=== PATIENT | female | born 1980 | race Caucasian/White ===

== ENCOUNTER 2018-03-27 17:19 | Emergency (ER) | payer BC ==
[~2018-03-27] VITALS: Ht 172.7 cm; Wt 59.0 kg
[2018-03-27 17:53] LABS: *URINE HCG, QUAL NEGATIVE (NEGATIVE)
--- NOTE | 2018-03-27 17:56 | NUR ---
PT IS IN ROOM #1B. DR GUERRA EVALUATED THE [place].
[2018-03-27] MEDS ORDERED: HYDROCODONE/APAP 5-325MG TABLET PO ONE (18:15)
[2018-03-27] MEDS ORDERED: HYDROCODONE/APAP 5-325MG TABLET ONE (18:24)
--- NOTE | 2018-03-27 18:29 | NUR ---
PT WAS D/C TO HOME. D/C INSTRUCTIONS GIVEN TO THE PT.
[2018-03-27 18:31] VITALS: BP 132/65
== END 2018-03-27 18:45 | disposition home or self-care (01) ==
LOC: ER 17:24
DX: S06.0X0A Concussion without loss of consciousness, initial encounter (principal); R55 Syncope and collapse; R10.9 Unspecified abdominal pain; R19.7 Diarrhea, unspecified; W22.8XXA Striking against or struck by other objects, initial encounter; Y93.89 Activity, other specified; Y92.89 Other specified places as the place of occurrence of the external cause; Y99.8 Other external cause status
CPT/HCPCS: 82962; 84703; 93005; 99285; A4663